=== PATIENT | male | born 1975 | race African-American/Black ===

== ENCOUNTER 2022-11-01 22:09 | Emergency (ER) | payer MEDICAID, OTHER ==
[~2022-11-01] VITALS: Ht 170.2 cm; Wt 95.3 kg
[2022-11-01 22:23] VITALS: BP_SYST 142
--- NOTE | 2022-11-01 22:26 | NUR ---
Pt brought by PD, A&Ox4, pt brought for medical clearance [facility], pt states he has Hx of asthma, O2 98%, respirations even and unlabored, c/o pain on feet, skin pink and warm, cap refill <3, VSS, will cont to monitor.
--- NOTE | 2022-11-01 22:31 | NUR ---
Dr Pavon evaluating patient in the [facility]
[2022-11-01] MEDS ORDERED: INDO-12 PO (22:40)
--- NOTE | 2022-11-01 22:47 | NUR ---
Patient given written and verbal discharge instructions and verbalizes understanding. ER MD discussed with patient the results and treatment provided. Patient in stable condition. ID arm band removed. Rx of Indomethacin given. Patient educated on pain management and to follow up with PMD. Pain Scale 2/10. Opportunity for questions provided and answered. Medication side effect fact sheet provided.
[2022-11-01 22:48] VITALS: BP_SYST 142
== END 2022-11-01 22:48 | disposition home or self-care (01) ==
LOC: SED 22:09
DX: Z02.89 Encounter for other administrative examinations (principal); M10.9 Gout, unspecified; Z79.899 Other long term (current) drug therapy
CPT/HCPCS: 99283